=== PATIENT | female | born 2000 ===

== ENCOUNTER 2023-09-15 02:39 | Inpatient (IN) | payer OTHER ==
[2023-09-15] MEDS ORDERED: Methylergonovine 0.2 MG/1 ML Amp IM PRN (05:45)
[2023-09-15] MEDS ORDERED: Sodium Chloride 0.9% 2.5 ML Syringe FLUSH PRN (05:45)
[2023-09-15] MEDS ORDERED: Carboprost Tromethamine 250 MCG/1 mL Vial IM PRN (05:45)
[2023-09-15] MEDS ORDERED: Water For Irrigation,Sterile 1,000 ML Container IRR PRN (05:45)
[2023-09-15] MEDS ORDERED: Tranexamic Acid IN NACL,ISO-OS 1,000 MG in Premix Bag 1 BAG IV PRN (05:45)
[2023-09-15] MEDS ORDERED: Nalbuphine 10 MG/0.5 ML Syringe IVPUSH PRN (05:45)
[2023-09-15] MEDS ORDERED: Ondansetron 4 MG/2 ML SDV IVPUSH PRN (05:45)
[2023-09-15] MEDS ORDERED: Sodium Chloride 0.9% 10 ML Syringe FLUSH PRN (05:45)
[2023-09-15] MEDS ORDERED: Terbutaline 1 MG/ML SDV SUBCUT PRN (05:45)
[2023-09-15] MEDS ORDERED: Sodium Chloride 0.9% 20 ML SDV IV PRN (05:45)
[2023-09-15] MEDS ORDERED: Oxytocin/0.9 % Sodium Chloride 30 UNIT/500 ML BAG IV SCH (05:45)
[2023-09-15] MEDS ORDERED: Lidocaine 1% 50 ML MDV INJECT PRN (05:45)
[2023-09-15] MEDS ORDERED: Misoprostol 200 MCG Tab PO PRN (05:45)
[2023-09-15 06:02] LABS: HEMATOCRIT 38.5 % (37.0-47.0); HEMOGLOBIN 13.5 g/dL (12.0-16.0); MEAN CORPUSCULAR HEMOGLOBIN 32.5 pg (28.0-32.0); MEAN CORPUSCULAR HGB CONC 35.1 g/dL (32.0-36.0); MEAN CORPUSCULAR VOLUME 92.5 fL (83.0-99.0); MEAN PLATELET VOLUME 10.3 fL (9.4-12.3); PLATELET COUNT,PLT 178 K/uL (150-400); RED BLOOD CELL COUNT 4.16 M/uL (4.10-5.30); WHITE BLOOD CELL COUNT,WBC 13.56 K/uL (3.9-11.3)
[2023-09-15] MEDS ORDERED: ePHEDrine 50 MG/ML SDV IVPUSH PRN ×2 (10:08)
[2023-09-15] MEDS: Lactated Ringers 1,000 ML IV SCH (10:30)
[2023-09-15] MEDS: Oxytocin/0.9 % Sodium Chloride 30 UNIT/500 ML BAG IV SCH (10:30)
[2023-09-15] MEDS: Ropivacaine HCl/PF 400 MG in Premix Bag 1 BAG EPIDUR SCH (15:01)
[2023-09-15] MEDS ORDERED: dexmedeTOMIDine HCl 200 MCG/2 ML SDV ONE (15:07)
[2023-09-15] MEDS ORDERED: Bupivacaine 0.25% 30 ML SDV ONE (15:07)
[2023-09-15] MEDS: Lactated Ringers 1,000 ML IRR SCH (16:30)
[2023-09-15] MEDS: Phenylephrine HCl In 0.9% NaCl 1 MG/10 ML Syringe IVPUSH PRN (20:40)
[2023-09-15] MEDS ORDERED: Simethicone 80 MG Tab.Chew PO PRN (23:36)
[2023-09-15] MEDS ORDERED: Aluminum Hydroxide/Magnesium Hydroxide/Simethicone XS Susp 30 ML Cup PO PRN (23:36)
[2023-09-15] MEDS ORDERED: diphenhydrAMINE 50 MG Cap PO PRN (23:36)
[2023-09-15] MEDS ORDERED: Lanolin 100% Cream 7 GM Tube TOP PRN (23:36)
[2023-09-15 23:48] LABS: PH,UMBILICAL ARTERIAL 7.27 (7.18-7.38); PH,UMBILICAL VENOUS 7.329 (7.25-7.45)
[2023-09-16] MEDS: Ibuprofen 800 MG Tab PO PRN (01:30)
[2023-09-16] MEDS: Witch Hazel Medicated Pads 40/Jar TOP PRN (01:30)
[2023-09-16] MEDS: Benzocaine/Menthol 20%-0.5% Spray 78 GM Cannister TOP PRN (01:31)
[2023-09-16] MEDS: Acetaminophen 500 MG Tab PO PRN (03:29)
[2023-09-16 07:48] LABS: HEMATOCRIT 34.5 % (37.0-47.0); HEMOGLOBIN 12.1 g/dL (12.0-16.0); MEAN CORPUSCULAR HGB CONC 35.1 g/dL (32.0-36.0); MEAN PLATELET VOLUME 9.8 fL (9.4-12.3); PLATELET COUNT,PLT 159 K/uL (150-400); RED BLOOD CELL COUNT 3.67 M/uL (4.10-5.30); WHITE BLOOD CELL COUNT,WBC 16.74 K/uL (3.9-11.3)
[2023-09-16] MEDS: Docusate Sodium 100 MG Cap PO PRN (07:48)
[2023-09-16] MEDS: Ferrous Sulfate 325 MG Tab PO SCH (07:48)
== END 2023-09-17 18:55 | disposition home or self-care (01) | DRG 807 ==
LOC: MW.OBCHECK 02:39 → MW.OB 02:41 → MW.OBCHECK 05:45 → OBSVTOIN 21:34 → MW.OB 09-16 02:01
PROVIDERS: ADMIT Obstetrics & Gynecology; ATTEND Obstetrics & Gynecology
PROC: 10E0XZZ Delivery of Products of Conception, External Approach (ICD-10-PCS; principal; 2023-09-15)
PROC: 0KQM0ZZ Repair Perineum Muscle, Open Approach (ICD-10-PCS; 2023-09-15)
DX: O42.02 Full-term premature rupture of membranes, onset of labor within 24 hours of rupture (principal); Z37.0 Single live birth; Z3A.39 39 weeks gestation of pregnancy; O77.0 Labor and delivery complicated by meconium in amniotic fluid; O99.344 Other mental disorders complicating childbirth; F41.9 Anxiety disorder, unspecified; F32.A Depression, unspecified; O70.1 Second degree perineal laceration during delivery
CPT/HCPCS: 36415; 51702; 59020; 59409; 59414; 82803; 85027; 86592; 86850; 86900; 86901; A9270-GY; J0665; J2371; J2590; J2795; J3490; J7120